=== PATIENT | female | born 1985 | race Caucasian/White ===

== ENCOUNTER 2022-10-15 07:59 | Inpatient (IN) | payer OTHER ==
[2022-10-15] MEDS ORDERED: CYTOTEC PO SCH ×2 (18:00→20:00)
[2022-10-15] MEDS ORDERED: TYLENOL EXTRA STRENGTH 500 MG PO PRN (18:00)
[2022-10-15] MEDS ORDERED: Zofran 4 MG/2 ML VIAL IV PRN (18:00)
[2022-10-15 19:53] LABS: Amphetamine,Urine NEGATIVE (NEGATIVE); Barbiturate,Urine NEGATIVE (NEGATIVE); Benzodiazepine,Urine NEGATIVE (NEGATIVE); Cocaine,Urine NEGATIVE (NEGATIVE); Methadone,Urine NEGATIVE (NEGATIVE); Opiate,Urine NEGATIVE (NEGATIVE); PCP,Urine NEGATIVE (NEGATIVE); THC,Urine NEGATIVE (NEGATIVE)
[2022-10-15 20:10] LABS: Absolute Neutrophil Ct (ANC) 7.85 x10^3/uL (1.4-6.9); BASOPHIL % 0.3 % (0.0-0.4); Basophil (Absolute #) 0.03 x10^3/uL (0-0.4); Eosinophil % 1.4 % (0.00-5.0); Eosinophil (Absolute #) 0.16 x10^3/uL (0-0.5); Hematocrit 39.1 % (35-47); Hemoglobin 12.6 g/dL (12.0-16.0); IMMATURE GRAN # 0.07 x10^3u/L (0.00-0.03); IMMATURE GRAN % 0.6 % (0.00-0.4); Lymphocyte (Absolute #) 2.85 x10^3/uL (1.0-4.6); Lymphocytes % 24.6 % (24.0-44.0); Mean Cell Volume 87.5 fL (78-100); Mean Corpuscular Hemoglobin 28.2 pg (26-32); Mean Corpuscular Hgb Concent. 32.2 g/dL (32-36); Mean Platelet Volume 10.1 fL (7.5-11.0); Monocyte (Absolute #) 0.63 x10^3/uL (0.0-1.3); Monocytes % 5.4 % (0.0-12.0); Neutrophil % 67.7 % (36.0-66.0); Platelet Count 327 x10^3/uL (150-450); Red Blood Count 4.47 x10^6/uL (4.1-5.4); Red Cell Distribution Width 14.6 % (11.5-14.0); White Blood Count 11.6 x10^3/uL (4.0-10.5)
[2022-10-15 21:09] LABS: ABO TYPING A
[2022-10-15 21:10] LABS: Antibody Screen NEGATIVE (NEGATIVE); RH TYPING NEGATIVE
[2022-10-15] MEDS: CYTOTEC PO SCH ×2 (21:14→23:18)
[2022-10-15] MEDS ORDERED: HUMALOG SQ PRN (22:03)
[2022-10-15] MEDS: Trandate 100 MG PO SCH (23:15)
[2022-10-15] MEDS: Lantus Insulin SQ SCH (23:16)
[2022-10-16] MEDS: Ambien 5 MG Tablet PO SCH (00:59)
[2022-10-16] MEDS: CYTOTEC PO SCH ×3 (01:17→05:15)
[2022-10-16] MEDS ORDERED: Zofran 4 MG/2 ML VIAL IV PRN (03:52)
[2022-10-16] MEDS ORDERED: STADOL 2 MG IV PRN (03:52)
[2022-10-16] MEDS ORDERED: TYLENOL EXTRA STRENGTH 500 MG PO PRN (03:52)
[2022-10-16] MEDS ORDERED: XYLOCAINE 1% HCL 20 ML MDV IJ PRN ×2 (04:15→08:00)
[2022-10-16] MEDS ORDERED: PITOCIN 30 UNITS/ LR 500 ML 30 UNITS/500 ML PLAST..BAG IV SCH ×4 (06:00→12:00)
[2022-10-16] MEDS ORDERED: Lactated Ringers 1,000 ML IV SCH (06:00)
[2022-10-16] MEDS ORDERED: Lactated Ringers 1,000 ML IV ONE (07:00)
[2022-10-16] MEDS: Lactated Ringers 1,000 ML IV SCH ×2 (07:04→13:38)
[2022-10-16] MEDS ORDERED: FENTANYL 2 MCG-BUPIV 0.125%-NS 250 ML Epidur 250 ML EPIDURAL SCH ×2 (08:00→12:30)
[2022-10-16] MEDS ORDERED: Ephedrine Sulfate 50 MG/ML IV PRN ×2 (08:00→12:28)
[2022-10-16] MEDS: Lantus Insulin SQ SCH ×2 (09:55→21:59)
[2022-10-16] MEDS ORDERED: Trandate 100 MG PO SCH (10:00)
[2022-10-16] MEDS: Trandate 100 MG PO SCH ×2 (10:13→22:00)
[2022-10-16] MEDS: NORVASC 5 MG PO SCH (10:13)
[2022-10-16] MEDS ORDERED: XYLOCAINE 2%/Epi 1:200000 20ML VIAL MPF ONE (14:47)
[2022-10-16] MEDS ORDERED: Sensorcaine 0.25% 10 ML ONE (14:49)
[2022-10-16] MEDS ORDERED: OFIRMEV 100 ML IV ONE (14:49)
[2022-10-16] MEDS ORDERED: SUBLIMAZE 100 MCG/2 ML ONE (14:49)
[2022-10-16] MEDS ORDERED: PHENYLEPHRINE HCL ONE (14:53)
[2022-10-16] MEDS ORDERED: Pitocin 10 UNITS/ML ONE (14:56)
[2022-10-16] MEDS ORDERED: SOD CITRATE-CITRIC ACID SOLN PO SCH (15:00)
[2022-10-16] MEDS ORDERED: CEFAZOLIN 2 GM-D5W BAG** 2 GM/50 ML ML IV SCH (15:00)
[2022-10-16] MEDS ORDERED: Reglan 10 MG/2 ML IV SCH (15:00)
[2022-10-16] MEDS ORDERED: Pepcid 20 MG VIAL IV SCH (15:00)
[2022-10-16] MEDS ORDERED: Astramorph-Pf 5 MG/10 ML ONE (15:02)
[2022-10-16 15:09] LABS: Appearance Clear (Clear); Bacteria None Seen /HPF (None Seen); Bilirubin Negative (Negative); Blood Negative (Negative); Epithelial Cells Rare /HPF (None Seen); Glucose, Urine Negative (Negative); Ketones 40 (Negative); Leukocyte Esterase Negative (Negative); Nitrite Negative (Negative); Protein,Urine Dip Trace (Negative); Urobilinogen 0.2 mg/dL (0.2)
[2022-10-16 15:10] LABS: ADD URINE CULTURE? ORDERED SEPARATELY (NO)
[2022-10-16 15:32] LABS: INR 0.9 (0.8-3.0); PROTIME 9.9 SECONDS (9.4-12.5); PTT 27.5 SECONDS (25.1-36.5)
[2022-10-16] MEDS ORDERED: Zofran 4 MG/2 ML VIAL ONE (15:44)
[2022-10-16] MEDS ORDERED: Ephedrine Sulfate 50 MG/ML ONE (16:56)
[2022-10-16] MEDS ORDERED: MOTRIN 400 MG PO PRN (19:59)
[2022-10-16] MEDS ORDERED: Mylicon 80MG PO PRN (19:59)
[2022-10-16] MEDS ORDERED: Dulcolax 10 MG SUPP PR PRN (19:59)
[2022-10-16] MEDS ORDERED: LANSINOH 40 GM TOP PRN (19:59)
[2022-10-16] MEDS ORDERED: Nubain 10 MG/ML IV PRN (20:14)
[2022-10-16] MEDS ORDERED: BENADRYL 50 MG/ML IV PRN (20:14)
[2022-10-16] MEDS ORDERED: PERCOCET TABLET 5/325MG PO PRN (20:14)
[2022-10-16] MEDS ORDERED: Sodium Chloride 0.9% 10 ML FLUSH Syringe IJ PRN (20:14)
[2022-10-16] MEDS ORDERED: Narcan 0.4 MG/ML IV PRN (20:14)
[2022-10-16] MEDS ORDERED: HOLD NARCOTIC ANALGESICS AND SEDATIVES X24 HR MC PRN (20:14)
[2022-10-16] MEDS ORDERED: MORPHINE SULFATE 2 MG INJ IV PRN (20:14)
[2022-10-16] MEDS ORDERED: CLARITIN 10 MG ONE (21:06)
[2022-10-16] MEDS ORDERED: CLARITIN 10 MG PO PRN (21:15)
[2022-10-16] MEDS ORDERED: [UNRECOGNIZED DRUG - REMARK] PO SCH (22:00)
[2022-10-16] MEDS ORDERED: THERAGRAN MULTIVITAMIN PO SCH (22:00)
[2022-10-17] MEDS: Ambien 5 MG Tablet PO SCH ×2 (00:24→22:20)
[2022-10-17] MEDS ORDERED: Lactated Ringers 1,000 ML IV SCH (05:00)
[2022-10-17] MEDS: Lactated Ringers 1,000 ML IV SCH (05:15)
[2022-10-17 05:17] LABS: Absolute Neutrophil Ct (ANC) 10.28 x10^3/uL (1.4-6.9); BASOPHIL % 0.3 % (0.0-0.4); Basophil (Absolute #) 0.04 x10^3/uL (0-0.4); Eosinophil % 0.3 % (0.00-5.0); Eosinophil (Absolute #) 0.04 x10^3/uL (0-0.5); Hematocrit 34.3 % (35-47); IMMATURE GRAN # 0.04 x10^3u/L (0.00-0.03); IMMATURE GRAN % 0.3 % (0.00-0.4); Lymphocyte (Absolute #) 1.93 x10^3/uL (1.0-4.6); Lymphocytes % 14.9 % (24.0-44.0); Mean Cell Volume 87.5 fL (78-100); Mean Corpuscular Hemoglobin 28.1 pg (26-32); Mean Corpuscular Hgb Concent. 32.1 g/dL (32-36); Mean Platelet Volume 10.5 fL (7.5-11.0); Monocytes % 4.6 % (0.0-12.0); Neutrophil % 79.6 % (36.0-66.0); Platelet Count 280 x10^3/uL (150-450); Red Blood Count 3.92 x10^6/uL (4.1-5.4); Red Cell Distribution Width 14.4 % (11.5-14.0); White Blood Count 12.9 x10^3/uL (4.0-10.5)
[2022-10-17] MEDS ORDERED: Rhogam Plus 300 MCG IM ONE (08:00)
--- NOTE | 2022-10-17 08:20 | PCM.NOTE ---
Date and Time: 10/17/22818 Subjective Assessment: pain is well controlled, mild lochia. falcon still present. has been up x 1, [place] so far Objective Exam General Appearance: no apparent distress, obese Neurologic Exam: alert, oriented x 3 Respiratory Exam: normal breath sounds, lungs clear, No respiratory distress Cardiovascular Exam: regular rate/rhythm, normal heart sounds Gastrointestinal/Abdomen Exam: soft, other (incision clean,dry, intact), No tenderness, No mass Extremity Exam: normal inspection, normal range of motion OBJECTIVE DATA Vital Signs: Vital Signs - 24 hr Temp Pulse Resp BP BP Pulse Ox 10/17/22 07:06 95 10/17/22 05:30 71 18 139/77 94 L 10/17/22 05:00 94 L 10/17/22 04:00 68 16 95 10/17/22 03:00 94 L 10/17/22 02:00 94 L 10/17/22 01:00 93 L 10/17/22 00:00 99 10/16/22 23:00 97 10/16/22 22:00 99 H 16 147/84 97 10/16/22 21:30 79 16 138/63 88 L 10/16/22 20:30 98.1 F 84 18 147/79 89 L 10/16/22 19:30 97.4 F 56 L 18 140/80 89 L 10/16/22 19:00 97.5 F 82 18 141/71 97 10/16/22 18:30 97.5 F 82 18 141/71 92 L 10/16/22 18:15 97.5 F 81 18 121/58 93 L 10/16/22 18:00 97.5 F 81 18 98/54 93 L 10/16/22 17:45 97.5 F 75 18 102/58 92 L 10/16/22 17:30 97.5 F 80 18 110/57 93 L 10/16/22 15:15 97.5 F 78 18 100/57 99 10/16/22 15:00 97.5 F 78 18 100/57 97 10/16/22 14:59 97.3 F 80 20 140/66 96 10/16/22 14:45 97.5 F 73 18 111/58 97 10/16/22 14:30 97.5 F 83 18 110/59 97 10/16/22 14:15 97.5 F 75 18 117/65 97 10/16/22 14:00 97.5 F 82 18 108/63 97 10/16/22 13:45 97.5 F 85 18 118/65 97 10/16/22 13:30 97.3 F 95 H 18 128/70 97 10/16/22 13:15 97.3 F 81 20 126/87 96 10/16/22 13:00 97.3 F 80 20 159/82 96 10/16/22 12:45 97.3 F 75 20 179/86 96 10/16/22 12:30 97.3 F 75 20 179/86 96 10/16/22 12:15 97.3 F 75 20 179/86 96 10/16/22 12:00 98.1 F 75 20 157/84 96 10/16/22 11:45 98.1 F 75 20 157/84 96 10/16/22 11:30 97.3 F 73 20 148/66 96 10/16/22 11:15 97.3 F 73 20 148/66 96 10/16/22 11:00 97.3 F 83 20 130/76 96 10/16/22 10:45 83 20 130/76 96 10/16/22 10:30 80 20 169/89 96 10/16/22 10:15 97.3 F 81 20 148/101 96 10/16/22 10:00 98.1 F 90 20 130/81 96 10/16/22 09:45 98.1 F 85 20 146/88 97 10/16/22 09:30 98.1 F 83 20 142/84 96 10/16/22 09:15 98.1 F 79 20 169/83 96 10/16/22 09:00 98.1 F 79 20 169/83 96 10/16/22 08:45 98.1 F 80 20 141/76 96 10/16/22 08:30 98.1 F 89 20 142/82 96 Pain Assessment - Last Documented Pain Intensity [Lower Anterior 5 ] Pain Intensity 0 Intake and Output: Intake & Output 10/14/22 10/15/22 10/16/22 10/17/22 11:59 11:59 11:59 11:59 Intake Total 1250 5400 Output Total 1 8764 Balance 1249 2566 Weight 111.584 kg 111.584 kg Lab Results: Lab Results-Last Hours 10/15/22 10/15/22 10/15/22 Range/Units 19:33 20:03 20:03 WBC 11.6 H (4.0-10.5) x10^3/uL RBC 4.47 (4.1-5.4) x10^6/uL Hgb 12.6 (12.0-16.0) g/dL Hct 39.1 (35-47) % MCV 87.5 (78-100) fL MCH 28.2 (26-32) pg MCHC 32.2 (32-36) g/dL RDW 14.6 H (11.5-14.0) % Plt Count 327 (150-450) x10^3/uL MPV 10.1 (7.5-11.0) fL Gran % 67.7 H (36.0-66.0) % Immature Gran % (Auto) 0.6 H (0.00-0.4) % Nucleat RBC Rel Count 0.0 (0.00-0.1) % Eos # (Auto) 0.16 (0-0.5) x10^3/uL Immature Gran # (Auto) 0.07 H (0.00-0.03) x10^3u/L Absolute Lymphs (auto) 2.85 (1.0-4.6) x10^3/uL Absolute Monos (auto) 0.63 (0.0-1.3) x10^3/uL Absolute Nucleated RBC 0.00 (0.00-0.01) x10^3u/L Lymphocytes % 24.6 (24.0-44.0) % Monocytes % 5.4 (0.0-12.0) % Eosinophils % 1.4 (0.00-5.0) % Basophils % 0.3 (0.0-0.4) % Absolute Granulocytes 7.85 H (1.4-6.9) x10^3/uL Basophils # 0.03 (0-0.4) x10^3/uL PT (9.4-12.5) SECONDS INR (0.8-3.0) APTT (25.1-36.5) SECONDS POC Glucometer (74 to 106) mg/dL Urine Color (Yellow) Urine Appearance (Clear) Urine pH (4.6-8.0) Ur Specific [place] (1.005-1.030) Urine Protein (Negative) Urine Glucose (UA) (Negative) mg/dL Urine Ketones (Negative) Urine Blood (Negative) Urine Nitrite (Negative) Urine Bilirubin (Negative) Urine Urobilinogen (0.2) mg/dL Ur Leukocyte Esterase (Negative) U Hyaline Cast (Auto) (0-2) /LPF Urine Microscopic RBC (0-5) /HPF Urine Microscopic WBC (0-5) /HPF Ur Epithelial Cells (None Seen) /HPF Urine Bacteria (None Seen) /HPF Urine Culture Reflexed (NO) Urine Opiates Level NEGATIVE (NEGATIVE) Ur Methadone NEGATIVE (NEGATIVE) Urine Barbiturates NEGATIVE (NEGATIVE) Ur Phencyclidine (PCP) NEGATIVE (NEGATIVE) Urine Amphetamine NEGATIVE (NEGATIVE) U Benzodiazepine Level NEGATIVE (NEGATIVE) Urine Cocaine NEGATIVE (NEGATIVE) Urine Marijuana (THC) NEGATIVE (NEGATIVE) ABO Group A Rh Factor NEGATIVE Antibody Screen NEGATIVE (NEGATIVE) 10/16/22 10/16/22 10/16/22 Range/Units 10:14 14:59 15:15 WBC (4.0-10.5) x10^3/uL RBC (4.1-5.4) x10^6/uL Hgb (12.0-16.0) g/dL Hct (35-47) % MCV (78-100) fL MCH (26-32) pg MCHC (32-36) g/dL RDW (11.5-14.0) % Plt Count (150-450) x10^3/uL MPV (7.5-11.0) fL Gran % (36.0-66.0) % Immature Gran % (Auto) (0.00-0.4) % Nucleat RBC Rel Count (0.00-0.1) % Eos # (Auto) (0-0.5) x10^3/uL Immature Gran # (Auto) (0.00-0.03) x10^3u/L Absolute Lymphs (auto) (1.0-4.6) x10^3/uL Absolute Monos (auto) (0.0-1.3) x10^3/uL Absolute Nucleated RBC (0.00-0.01) x10^3u/L Lymphocytes % (24.0-44.0) % Monocytes % (0.0-12.0) % Eosinophils % (0.00-5.0) % Basophils % (0.0-0.4) % Absolute Granulocytes (1.4-6.9) x10^3/uL Basophils # (0-0.4) x10^3/uL PT 9.9 (9.4-12.5) SECONDS INR 0.90 (0.8-3.0) APTT 27.5 (25.1-36.5) SECONDS POC Glucometer 134 H (74 to 106) mg/dL Urine Color Yellow (Yellow) Urine Appearance Clear (Clear) Urine pH 8.0 (4.6-8.0) Ur Specific [place] 1.020 (1.005-1.030) Urine Protein Trace A (Negative) Urine Glucose (UA) Negative (Negative) mg/dL Urine Ketones 40 A (Negative) Urine Blood Negative (Negative) Urine Nitrite Negative (Negative) Urine Bilirubin Negative (Negative) Urine Urobilinogen 0.2 (0.2) mg/dL Ur Leukocyte Esterase Negative (Negative) U Hyaline Cast (Auto) 3-5 A (0-2) /LPF Urine Microscopic RBC 3-5 (0-5) /HPF Urine Microscopic WBC 3-5 (0-5) /HPF Ur Epithelial Cells Rare (None Seen) /HPF Urine Bacteria None Seen (None Seen) /HPF Urine Culture Reflexed ORDERED SEPARATELY (NO) Urine Opiates Level (NEGATIVE) Ur Methadone (NEGATIVE) Urine Barbiturates (NEGATIVE) Ur Phencyclidine (PCP) (NEGATIVE) Urine Amphetamine (NEGATIVE) U Benzodiazepine Level (NEGATIVE) Urine Cocaine (NEGATIVE) Urine Marijuana (THC) (NEGATIVE) ABO Group Rh Factor Antibody Screen (NEGATIVE) 10/16/22 10/16/22 10/17/22 Range/Units 19:25 22:07 04:00 WBC 12.9 H (4.0-10.5) x10^3/uL RBC 3.92 L (4.1-5.4) x10^6/uL Hgb 11.0 L (12.0-16.0) g/dL Hct 34.3 L (35-47) % MCV 87.5 (78-100) fL MCH 28.1 (26-32) pg MCHC 32.1 (32-36) g/dL RDW 14.4 H (11.5-14.0) % Plt Count 280 (150-450) x10^3/uL MPV 10.5 (7.5-11.0) fL Gran % 79.6 H (36.0-66.0) % Immature Gran % (Auto) 0.3 (0.00-0.4) % Nucleat RBC Rel Count 0.0 (0.00-0.1) % Eos # (Auto) 0.04 (0-0.5) x10^3/uL Immature Gran # (Auto) 0.04 H (0.00-0.03) x10^3u/L Absolute Lymphs (auto) 1.93 (1.0-4.6) x10^3/uL Absolute Monos (auto) 0.60 (0.0-1.3) x10^3/uL Absolute Nucleated RBC 0.00 (0.00-0.01) x10^3u/L Lymphocytes % 14.9 L (24.0-44.0) % Monocytes % 4.6 (0.0-12.0) % Eosinophils % 0.3 (0.00-5.0) % Basophils % 0.3 (0.0-0.4) % Absolute Granulocytes 10.28 H (1.4-6.9) x10^3/uL Basophils # 0.04 (0-0.4) x10^3/uL PT (9.4-12.5) SECONDS INR (0.8-3.0) APTT (25.1-36.5) SECONDS POC Glucometer 144 H 121 H (74 to 106) mg/dL Urine Color (Yellow) Urine Appearance (Clear) Urine pH (4.6-8.0) Ur Specific [place] (1.005-1.030) Urine Protein (Negative) Urine Glucose (UA) (Negative) mg/dL Urine Ketones (Negative) Urine Blood (Negative) Urine Nitrite (Negative) Urine Bilirubin (Negative) Urine Urobilinogen (0.2) mg/dL Ur Leukocyte Esterase (Negative) U Hyaline Cast (Auto) (0-2) /LPF Urine Microscopic RBC (0-5) /HPF Urine Microscopic WBC (0-5) /HPF Ur Epithelial Cells (None Seen) /HPF Urine Bacteria (None Seen) /HPF Urine Culture Reflexed (NO) Urine Opiates Level (NEGATIVE) Ur Methadone (NEGATIVE) Urine Barbiturates (NEGATIVE) Ur Phencyclidine (PCP) (NEGATIVE) Urine Amphetamine (NEGATIVE) U Benzodiazepine Level (NEGATIVE) Urine Cocaine (NEGATIVE) Urine Marijuana (THC) (NEGATIVE) ABO Group Rh Factor Antibody Screen (NEGATIVE) 10/17/22 Range/Units 07:52 WBC (4.0-10.5) x10^3/uL RBC (4.1-5.4) x10^6/uL Hgb (12.0-16.0) g/dL Hct (35-47) % MCV (78-100) fL MCH (26-32) pg MCHC (32-36) g/dL RDW (11.5-14.0) % Plt Count (150-450) x10^3/uL MPV (7.5-11.0) fL Gran % (36.0-66.0) % Immature Gran % (Auto) (0.00-0.4) % Nucleat RBC Rel Count (0.00-0.1) % Eos # (Auto) (0-0.5) x10^3/uL Immature Gran # (Auto) (0.00-0.03) x10^3u/L Absolute Lymphs (auto) (1.0-4.6) x10^3/uL Absolute Monos (auto) (0.0-1.3) x10^3/uL Absolute Nucleated RBC (0.00-0.01) x10^3u/L Lymphocytes % (24.0-44.0) % Monocytes % (0.0-12.0) % Eosinophils % (0.00-5.0) % Basophils % (0.0-0.4) % Absolute Granulocytes (1.4-6.9) x10^3/uL Basophils # (0-0.4) x10^3/uL PT (9.4-12.5) SECONDS INR (0.8-3.0) APTT (25.1-36.5) SECONDS POC Glucometer 115 H (74 to 106) mg/dL Urine Color (Yellow) Urine Appearance (Clear) Urine pH (4.6-8.0) Ur Specific [place] (1.005-1.030) Urine Protein (Negative) Urine Glucose (UA) (Negative) mg/dL Urine Ketones (Negative) Urine Blood (Negative) Urine Nitrite (Negative) Urine Bilirubin (Negative) Urine Urobilinogen (0.2) mg/dL Ur Leukocyte Esterase (Negative) U Hyaline Cast (Auto) (0-2) /LPF Urine Microscopic RBC (0-5) /HPF Urine Microscopic WBC (0-5) /HPF Ur Epithelial Cells (None Seen) /HPF Urine Bacteria (None Seen) /HPF Urine Culture Reflexed (NO) Urine Opiates Level (NEGATIVE) Ur Methadone (NEGATIVE) Urine Barbiturates (NEGATIVE) Ur Phencyclidine (PCP) (NEGATIVE) Urine Amphetamine (NEGATIVE) U Benzodiazepine Level (NEGATIVE) Urine Cocaine (NEGATIVE) Urine Marijuana (THC) (NEGATIVE) ABO Group Rh Factor Antibody Screen (NEGATIVE) Assessment/Plan (1) delivery delivered Current Visit: Yes Status: Acute Assessment & Plan: routine postop orders Code(s): O82 - ENCOUNTER FOR DELIVERY WITHOUT INDICATION (2) Type 2 diabetes mellitus Current Visit: Yes Status: Acute (3) Essential hypertension Current Visit: Yes Status: Acute Code(s): I10 - ESSENTIAL (PRIMARY) HYPERTENSION
[2022-10-17] MEDS: Trandate 100 MG PO SCH ×2 (09:58→22:19)
[2022-10-17] MEDS: Docusate Sodium 100 MG PO SCH ×2 (09:58→22:20)
[2022-10-17] MEDS: FERREX 150 PO SCH (09:58)
[2022-10-17] MEDS: NORVASC 5 MG PO SCH (10:00)
[2022-10-17] MEDS ORDERED: Adacel Vial IM ONE (10:00)
[2022-10-17] MEDS: Lantus Insulin SQ SCH ×2 (10:15→22:21)
--- NOTE | 2022-10-17 11:51 | OP ---
SURGERY DATE/TIME: 10/16/2022 1521 PREOPERATIVE DIAGNOSES: 1) Non-reassuring heart tones. 2) Chronic hypertension. 3) Chronic diabetes mellitus type II. 4) Advanced maternal age. POSTOPERATIVE DIAGNOSES: 1) Non-reassuring heart tones. 2) Chronic hypertension. 3) Chronic diabetes mellitus type II. 4) Advanced maternal age. PROCEDURE: Emergency primary section. SURGEON: Yehuda Roldan M.D. ANESTHESIA: Epidural by Nakul Fox CRNA. QUANTITATIVE BLOOD LOSS: 530 cc. IV FLUIDS: 1200 cc of Crystalloid. URINE OUTPUT: 100 cc clear straw-colored urine. SPECIMEN: Placenta was sent for pathology. DESCRIPTION OF PROCEDURE: The patient was admitted for induction of labor with nonreassuring heart tones during labor process and intolerance of labor. She progressed only to 4 cm dilatation and was prepped for emergency section due to nonreassuring heart tones and persistent late decelerations. She had a previously placed laboring epidural dosed and she was taken to the OR, prepped and draped in the usual sterile fashion. Adequate level of anesthesia was assessed. A low transverse skin incision was made by knife and carried down through the subcutaneous fat to the level of the fascia. The fascia was nicked on both sides of the midline and extended horizontal using curved Radford scissors. The superior free edge of the fascia was grasped with Greer clamps and the underlying rectus muscles were dissected free. The same was repeated inferiorly. The peritoneal cavity was then opened and extended horizontal bluntly. Bladder flap was reflected over the lower uterine segment and horizontal uterine incision was made by knife and carried down to the uterus to the level of the amniotic membranes which were carefully artificially ruptured. A viable male was delivered from the vertex presentation with a strong cry immediately after delivery with good tone, good color and good respiratory effort. The cord was clamped and cut. He was handed off to the awaiting nursery team. Placenta was manually extracted and the uterus was exteriorized. The uterine cavity was sponge curetted clean with a lap sponge and some additional amniotic membranes were removed from the lower uterine segment. The uterus was then closed with #1 chromic in a running locked fashion with good closure and good hemostasis. Second layer was used to reinforce the suture line with good closure and good hemostasis. Posterior cul-de-sac was wiped free of blood and clot and the uterus was returned to the peritoneal cavity. The lateral gutters were wiped free of blood and clot and the uterine incision was carefully inspected and noted to be hemostatic with good closure. The fascia was closed with looped 0 PDS in a running fashion with good closure and good hemostasis achieved at that level as well. The subcutaneous fat was irrigated with warm, sterile saline. The subcutaneous space was closed with 2-0 Vicryl in interrupted fashion. Finally, the skin layer was closed with 4-0 undyed Vicryl in a running subcuticular fashion. Steri-Strips and occlusive dressing were placed over the incision and the patient was transferred to the recovery room in good condition.
[2022-10-17] MEDS ORDERED: Restoril 15 MG PO PRN (20:00)
[2022-10-17] MEDS ORDERED: Ambien 10 MG PO PRN (21:00)
[2022-10-17] MEDS ORDERED: DEMEROL 50 MG IV PRN (21:00)
[2022-10-18] MEDS: NORCO 5/325 MG PO PRN ×3 (04:08→14:52)
--- NOTE | 2022-10-18 09:48 | PCM.DS ---
Discharge Summary Date of Admission: 10/16/22 07:59 Admitting Physician: STAR OLEARY Consults: Consults on Case 10/16/22 14:53 Notify Physician OF ADMISSION 10/16/22 20:14 Notify Anesthesia Provider PRN 10/16/22 21:15 Notify Anesthesia Provider PRN 10/16/22 21:38 Navigation ONCE Primary Care Provider: STAR OLEARY Allergies Allergies No Known Drug Allergies Allergy (Verified 10/15/22 20:13) Hospital Summary - Hospital Course Hospital Course: patient had primary at 38wks with a history of chronic dm type 2 and chronic hypertension. she is doing great post-op, mild lochia, pain controlled. previously controlled on metformin alone - Vitals & Intake/Output Vital Signs: Vital Signs Temperature 97.7 F 10/18/22 02:00 Pulse Rate 96 H 10/18/22 02:00 Respiratory Rate 18 10/18/22 02:00 Blood Pressure 151/80 10/18/22 02:00 O2 Sat by Pulse Oximetry 93 L 10/18/22 02:00 Intake & Output: Intake & Output 10/15/22 10/16/22 10/17/22 10/18/22 11:59 11:59 11:59 11:59 Intake Total 1250 5400 350 Output Total 1 2834 1203 Balance 1249 2566 -853 Weight 111.584 kg 111.584 kg - Lab Result Diagrams: 10/17/22 04:00 Lab Results-Last 24 Hrs: Lab Results-Last 24 Hours 10/16/22 10/17/22 10/17/22 Range/Units 18:00 08:00 11:57 POC Glucometer 41 L* 150 H (50 to 500) mg/dL Screen SEE SEPARATE REPORT 10/17/22 10/18/22 Range/Units 16:15 08:41 POC Glucometer 144 H 114 H (50 to 500) mg/dL Screen Micro Results-Entire Visit: Microbiology 10/16/22 Unknown Urine Culture - Final Urine, Indwelling Catheter NO GROWTH Accuchecks Date 10/18/22 Date 10/17/22 Date 10/17/22 Time 08:30 Time 01:57 - Procedures and Test Procedures and Tests throughout Hospitalization: Therapy Orders & Screens 10/16/22 20:14 Oxygen Nasal Cannula 2 lpm Comment: Diagnosis: IUP, IOL, GDM Discharge Exam General Appearance: no apparent distress, obese Neurologic Exam: alert, oriented x 3 Respiratory Exam: normal breath sounds, lungs clear, No respiratory distress Cardiovascular Exam: regular rate/rhythm, normal heart sounds Gastrointestinal/Abdomen Exam: soft, other (incision clean, dry, intact and well approximated.) Extremity Exam: normal inspection, normal range of motion Skin Exam: normal color, warm, dry Final Diagnosis/Problem List - Final Discharge Diagnosis/Problem (1) delivery delivered Current Visit: Yes Status: Acute Code(s): O82 - ENCOUNTER FOR DELIVERY WITHOUT INDICATION (2) Type 2 diabetes mellitus Current Visit: Yes Status: Acute (3) Essential hypertension Current Visit: Yes Status: Acute Code(s): I10 - ESSENTIAL (PRIMARY) HYPERTENSION - Discharge Disposition: Home, Self-Care Condition: Stable Prescriptions: New Hydrocodone/Acetaminophen [Hydrocodone-Acetamin 5-325 mg] 1 tab PO Q6HPRN PRN #28 tablet MDD 4 PRN Reason: Pain Continue Amlodipine Besylate 5 mg [Norvasc 5 mg] 10 mg PO DAILY Metformin HCl 500 mg [Glucophage 500 MG] 500 mg PO BIDWM Loratadine 10 mg [Claritin 10 mg] 10 mg PO DAILY Omeprazole 20 mg PO DAILY Vit No.129/Iron/Folic [ One Daily Tablet] 81 mg PO HS Potassium Gluconate [Potassium] 99 mg PO DAILY Labetalol HCl 100 mg [Trandate 100 MG] 100 mg PO BID Discontinued Insulin Glargine [Lantus Insulin] 24 unit SQ BID Ferrous Sulfate 325 mg PO DAILY Insulin Lispro [Admelog] 100 unit SQ AC Aspirin EC 81 mg [Ecotrin 81 mg] 81 mg PO DAILY Follow up with: STAR OLEARY MD [Primary Care Provider] -
[2022-10-18] MEDS: NORVASC 5 MG PO SCH (09:57)
[2022-10-18] MEDS: Trandate 100 MG PO SCH (09:57)
[2022-10-18] MEDS: FERREX 150 PO SCH (09:58)
[2022-10-18] MEDS: Docusate Sodium 100 MG PO SCH (10:36)
[2022-10-18 11:51] VITALS: O2SAT 96
[2022-10-18 18:01] VITALS: BP 137/75; PULSE 93
== END 2022-10-18 17:00 | disposition home or self-care (01) | DRG 786 ==
LOC: OB 07:59 → OBSVTOIN 10-16 07:59
PROVIDERS: ADMIT Family Medicine; ATTEND Family Medicine
PROC: 10D00Z1 Extraction of Products of Conception, Low, Open Approach (ICD-10-PCS; principal; 2022-10-16)
DX: O36.8330 Maternal care for abnormalities of the fetal heart rate or rhythm, third trimester, not applicable or unspecified (principal); O24.12 Pre-existing type 2 diabetes mellitus, in childbirth; O10.92 Unspecified pre-existing hypertension complicating childbirth; Z37.0 Single live birth; Z3A.38 38 weeks gestation of pregnancy; Z20.828 Contact with and (suspected) exposure to other viral communicable diseases
CPT/HCPCS: 36415; 62322; 64488; 76937; 76942; 80307; 81001; 82947; 85025; 85461; 85610; 85730; 86850; 86900; 86901; 87086; 87340; 90471; 90715; 96372; 99140; G0378; J0690; J2274; J2300; J2370; J2405; J2590; J2790; J3010; A9270-GY

== ENCOUNTER 2024-02-14 21:04 | Emergency (ER) | payer BC, OTHER ==
[2024-02-14 21:26] VITALS: TEMP 97.8
[2024-02-14] MEDS: XYLOCAINE 1% HCL 20 ML MDV IJ ONE (21:27)
[2024-02-14] MEDS ORDERED: Augmentin 875-125 Tablet ONE (21:32)
[2024-02-14] MEDS: Augmentin 875-125 Tablet PO ONE (21:33)
--- NOTE | 2024-02-14 21:33 | ERPHSYRPT ---
- History of Present Illness Time Seen by Provider: 02/14/24 21:05 Source: patient Exam Limitations: no limitations Patient Subjective Stated Complaint: dog bite to R upper arm Triage Nursing Assessment: pt ambulatory to bed by self with steady gait with holding R upper arm with rag from home, pt presents with a dog bite to R upper arm, bleeding slightly, 1.3 cm laceration noted. tetanus utd and and dog's vaccinations utd, pt states it was her friends dogs Physician History: 38 years old female updated with tetanus presented in the ER after she got bit by a friend's dog. Patient reports she was messing with the dog when got attacked. Reports bleeding initially but stopped with applying pressure. Patient on the right elbow area. Multiple puncture wound with a small laceration. Intact range of motion of elbow. Allergies/Adverse Reactions: black pepper Allergy (Severe, Verified 02/14/24 21:10) Difficulty Breathing Home Medications: Amlodipine Besylate 5 mg [Norvasc 5 mg] 10 mg PO DAILY 10/15/22 [History] Labetalol HCl 100 mg [Trandate 100 MG] 100 mg PO BID 10/15/22 [History] Loratadine 10 mg [Claritin 10 mg] 10 mg PO DAILY 10/15/22 [History] Metformin HCl 500 mg [Glucophage 500 MG] 500 mg PO BIDWM 10/15/22 [History] Omeprazole 20 mg PO DAILY 10/15/22 [History] Potassium Gluconate [Potassium] 99 mg PO DAILY 10/15/22 [History] Vit No.129/Iron/Folic [ One Daily Tablet] 81 mg PO HS 10/15/22 [History] Hx Tetanus, Diphtheria Vaccination/Date Given: Yes Hx Influenza Vaccination/Date Given: No Hx Pneumococcal Vaccination/Date Given: No Travel Risk - International Travel Have you traveled outside of the country in past 3 weeks: No - Emerging Infectious Disease Are you exhibiting symptoms associated with any current EIDs: No - Review of Systems Constitutional: No Symptoms Ears, Nose, & Throat: No Symptoms Respiratory: No Symptoms Cardiac: No Symptoms Abdominal/Gastrointestinal: No Symptoms Genitourinary Symptoms: No Symptoms Musculoskeletal: Injury Skin: Skin Lesions Neurological: No Symptoms Endocrine: No Symptoms Immunological/Allergic: No Symptoms - Past Medical History Pertinent Past Medical History: Yes Neurological History: Migraines ENT History: No Pertinent History Cardiac History: Hypertension Respiratory History: No Pertinent History Endocrine Medical History: No Pertinent History, Diabetes Type II Musculoskeletal History: Fractures GI Medical History: GERD History: No Pertinent History Psycho-Social History: Anxiety, Depression Female Reproductive Disorders: No Pertinent History - Past Surgical History Past Surgical History: Yes Neuro Surgical History: No Pertinent History Cardiac: No Pertinent History Respiratory: No Pertinent History Gastrointestinal: Cholecystectomy Genitourinary: No Pertinent History Musculoskeletal: No Pertinent History Female Surgical History: Section - Female History Hx Last Menstrual Period: 01/28/24 Hx Now: No - Social History Smoking Status: Former smoker Exposure to second hand smoke: No Drug Use: none - Social Determinants of Health Will the patient participate in the screening: Yes Do you worry about a steady place to live?: No Do you have any problems with any of the following?: No known problems In the past 12 months,have you had to go without utilities?: No Transportation Issues: No Has anyone in your support network made you feel unsafe?: No Have you or anyone in your house had to go without enough: No - Nursing Vital Signs Nursing Vital Signs: Initial Vital Signs Temperature 97.8 F 02/14/24 21:13 Pulse Rate 118 H 02/14/24 21:13 Respiratory Rate 18 02/14/24 21:13 Blood Pressure 167/85 02/14/24 21:13 O2 Sat by Pulse Oximetry 98 02/14/24 21:13 Pain Scale Pain Intensity 2 - Physical Exam General Appearance: no apparent distress, alert Eye Exam: PERRL/EOMI Neck Exam: normal inspection, supple, full range of motion Respiratory Exam: normal breath sounds, lungs clear Cardiovascular Exam: normal heart sounds, tachycardia Extremity Exam: normal range of motion, other (2 cm laceration right elbow posterior aspect. No active spurting blood oozing. Intact range of motion. Multiple puncture wound in the lower arm area.) Neurologic Exam: alert, oriented x 3, cooperative Skin Exam: normal color SpO2 Interpretation: normal SpO2: 98 O2 Delivery: Room Air Procedures - Laceration/Wound Repair Right Elbow Time of Procedure: 21:32 Wound Location: Right Wound Length (cm): 2 Wound's Depth, Shape: into muscle Wound Explored: clean Irrigated: Yes Hibiclens Prep: Yes Anesthesia: 1% Lidocaine Volume Anesthetic (ccs): 3 Suture Size/Type: 4-0 Number of Sutures: 3 Ordered Tests: Medication Summary Discontinued Medications Generic Name Dose Route Start Last Admin Trade Name Wali PRN Reason Stop Dose Admin Lidocaine HCl 5 ml 02/14/24 21:22 Lidocaine Hcl 1% 20 Ml Mdv 20 Ml Ml IJ 02/14/24 21:23 STAT ONE - Progress Progress: improved Progress Note: 02/14/24 21:33 38 years old is evaluated for right elbow area her dog bite. Dog is immunized. Patient is up-to-date with tetanus. Intact range of motion of elbow. Laceration is repaired. Started on Augmentin. Outpatient follow-up recommended. Discussed signs symptoms of worsening needing return to ER which she seems understanding. Stable for discharge. Counseled pt/family regarding: diagnosis, need for follow-up Medical Desision Making - Diagnostic Testing Diagnostic test were ordered, analyzed, and reviewed by me: Yes - Risk of complications The pt has a mod risk of morbidity or mortality based on: Need for prescription drug management, Need for minor surgical intervention in patient with know risk factors - Departure Departure Disposition: Home Clinical Impression: Dog bite Condition: Stable Critical Care Time: No Referrals: STAR OLEARY MD [Primary Care Provider] - Follow up with PCP 1 day Instructions: Animal Bites (DC) Additional Instructions: Take Tylenol/ibuprofen as needed. Follow-up with primary care for reevaluation. Keep it clean and dry. Return to ER for increasing pain swelling redness discharge etc. Prescriptions: Ibuprofen 600 mg PO Q6HPRN PRN 10 Days #20 tablet PRN Reason: Pain Amox Tr/Potass Clav. 875 mg [Augmentin 875-125 Tablet] 875 mg PO BID #14 tablet
[2024-02-14 22:38] VITALS: BP 154/76; PULSE 100; RESP 20; O2SAT 97
--- NOTE | 2024-02-15 08:45 | XRAY ---
Indication: Pain. Dog bite. Comparison: None 3 view right elbow demonstrates soft tissue swelling/subcutaneous emphysema posterior to distal humerus presumed related to injury. No other bony, articular, or soft tissue abnormalities.
== END 2024-02-14 22:38 | disposition home or self-care (01) ==
LOC: ED 21:04
DX: S41.151A Open bite of right upper arm, initial encounter (principal); W54.0XXA Bitten by dog, initial encounter; I10 Essential (primary) hypertension; E11.9 Type 2 diabetes mellitus without complications; Z79.84 Long term (current) use of oral hypoglycemic drugs; Z79.899 Other long term (current) drug therapy
CPT/HCPCS: 12001; 73080; 96372; 99283; A9270-GY

== ENCOUNTER 2024-04-13 13:35 | Emergency (ER) | payer BC ==
[2024-04-13] MEDS ORDERED: XYLOCAINE 1% HCL 20 ML MDV IJ ONE (13:36)
--- NOTE | 2024-04-13 13:42 | ERPHSYRPT ---
- History of Present Illness Time Seen by Provider: 04/13/24 13:42 Source: patient Exam Limitations: no limitations Physician History: This is an obese 38-year-old white female patient of Dr. Oleary who arrives by private vehicle after experiencing approximately 1 week of dysuria. She has tried [id number] urinary pain relief medication which did not help relieve her discomfort. Patient states that she thinks she has a urinary tract infection. She does not have flank pain. She does not have abdominal pain. She has not had any nausea vomiting or diarrhea. She has not had any measured fever. She denies chest pain and she denies shortness of breath. Patient has a history of diabetes, hypertension, gastroesophageal reflux disease, anxiety, depression Timing/Duration: week(s) (1) Activites at Onset: none Quality: burning Onset Location: urethral (Urination) Pain Radiation: none Severity of Pain-Max: mild Severity of Pain-Current: mild Sexual intercourse history: non-contributory Modifying Factors: Improves With: urinating (Worsening of paindysuria) Associated Symptoms: dysuria Allergies/Adverse Reactions: black pepper Allergy (Severe, Verified 04/13/24 13:56) Difficulty Breathing Home Medications: Amlodipine Besylate [Norvasc] 10 mg PO DAILY 04/13/24 [History] Aspirin EC 81 mg [Ecotrin 81 mg] 81 mg PO DAILY 04/13/24 [History] Labetalol HCl 100 mg [Trandate 100 MG] 100 mg PO BID 04/13/24 [History] Metformin HCl 500 mg [Glucophage 500 MG] 500 mg PO BID 04/13/24 [History] Omeprazole 20 mg PO DAILY 04/13/24 [History] Potassium Citrate [Potassium] 99 mg PO DAILY 04/13/24 [History] Hx Tetanus, Diphtheria Vaccination/Date Given: Yes Hx Influenza Vaccination/Date Given: No Hx Pneumococcal Vaccination/Date Given: No Travel Risk - International Travel Have you traveled outside of the country in past 3 weeks: No - Emerging Infectious Disease Are you exhibiting symptoms associated with any current EIDs: No - Review of Systems Constitutional: No Symptoms Eyes: No Symptoms Ears, Nose, & Throat: No Symptoms Respiratory: No Symptoms Cardiac: No Symptoms Abdominal/Gastrointestinal: No Symptoms Genitourinary Symptoms: Dysuria Musculoskeletal: No Symptoms Skin: No Symptoms Neurological: No Symptoms Psychological: No Symptoms Endocrine: No Symptoms Hematologic/Lymphatic: No Symptoms Immunological/Allergic: No Symptoms All Other Systems: Reviewed and Negative - Past Medical History Pertinent Past Medical History: Yes Neurological History: Migraines ENT History: No Pertinent History Cardiac History: Hypertension Respiratory History: No Pertinent History Endocrine Medical History: No Pertinent History, Diabetes Type II Musculoskeletal History: Fractures GI Medical History: GERD History: No Pertinent History Psycho-Social History: Anxiety, Depression Female Reproductive Disorders: No Pertinent History - Past Surgical History Past Surgical History: Yes Neuro Surgical History: No Pertinent History Cardiac: No Pertinent History Respiratory: No Pertinent History Gastrointestinal: Cholecystectomy Genitourinary: No Pertinent History Musculoskeletal: No Pertinent History Female Surgical History: Section - Female History Hx Last Menstrual Period: 01/28/24 - Social History Smoking Status: Former smoker Exposure to second hand smoke: No Drug Use: none - Social Determinants of Health Will the patient participate in the screening: Yes Do you worry about a steady place to live?: No In the past 12 months,have you had to go without utilities?: No Transportation Issues: No Has anyone in your support network made you feel unsafe?: No Have you or anyone in your house had to go without enough: No - Nursing Vital Signs Nursing Vital Signs: Initial Vital Signs Temperature 99.2 F 04/13/24 14:00 Pulse Rate 105 H 04/13/24 14:00 Respiratory Rate 18 04/13/24 14:00 Blood Pressure 139/77 04/13/24 14:00 O2 Sat by Pulse Oximetry 97 04/13/24 14:00 Pain Scale Pain Intensity 6 - Physical Exam General Appearance: no apparent distress, alert, anxiety, obese Eye Exam: PERRL/EOMI, eyes nml inspection Ears, Nose, Throat Exam: normal ENT inspection, moist mucous membranes Neck Exam: normal inspection, non-tender, supple, full range of motion Respiratory Exam: airway intact, No chest tenderness, No respiratory distress Gastrointestinal/Abdomen Exam: No tenderness Pelvic Exam: not done Rectal Exam: not done Back Exam: normal inspection, normal range of motion, No CVA tenderness, No vertebral tenderness Extremity Exam: normal inspection, normal range of motion, pelvis stable Neurologic Exam: alert, oriented x 3, cooperative, 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, nml cerebellar function, nml station & gait, sensation nml Skin Exam: normal color, warm, dry Lymphatic Exam: No adenopathy SpO2 Interpretation: normal O2 Delivery: Room Air - Course Nursing assessment & vital signs reviewed: Yes Ordered Tests: Active Orders 24 hr Category Date Time Status CULTURE,URINE Stat Lab 04/13/24 14:07 Received HCG QUALITATIVE, URINE Stat Lab 04/13/24 14:07 Completed UA W/RFX UR CULTURE Stat Lab 04/13/24 14:07 Completed Medication Summary Discontinued Medications Generic Name Dose Route Start Last Admin Trade Name Wali PRN Reason Stop Dose Admin Ceftriaxone Sodium 1,000 mg 04/13/24 14:38 04/13/24 14:45 Ceftriaxone Sodium 1000 Mg Inj Vial IM 04/13/24 14:39 1,000 mg STAT ONE Administration Ceftriaxone Sodium Confirm 04/13/24 14:43 Ceftriaxone Sodium 1000 Mg Inj Vial Administered 04/13/24 14:44 Dose 1,000 mg .ROUTE .STK-MED ONE Levofloxacin 500 mg 04/13/24 14:38 04/13/24 14:45 Levofloxacin 500 Mg Tablet PO 04/13/24 14:39 500 mg STAT ONE Administration Levofloxacin Confirm 04/13/24 14:42 Levofloxacin 500 Mg Tablet Administered 04/13/24 14:43 Dose 500 mg .ROUTE .STK-MED ONE Lab/Rad Data: Laboratory Results 04/13/24 04/13/24 Range/Units 14:07 14:07 Urine Color Yellow (Yellow) Urine Appearance Cloudy A (Clear) Urine pH 5.5 (4.6-8.0) Ur Specific [place] >=1.030 A (1.005-1.030) Urine Protein 30 (Negative) Urine Glucose (UA) >=1000 A (Negative) mg/dL Urine Ketones 40 A (Negative) Urine Blood Negative (Negative) Urine Nitrite Positive A (Negative) Urine Bilirubin Negative (Negative) Urine Urobilinogen 0.2 (0.2) mg/dL Ur Leukocyte Esterase Small A (Negative) U Hyaline Cast (Auto) NONE SEEN (0-2) /LPF Urine Microscopic RBC 0-2 (0-5) /HPF Urine Microscopic WBC >100 A (0-5) /HPF Ur Epithelial Cells Rare (None Seen) /HPF Urine Bacteria Moderate A (None Seen) /HPF Urine Culture Reflexed YES (NO) Urine HCG, Qual NEGATIVE (NEGATIVE) - Progress Progress: unchanged Air Movement: good Progress Note: 04/13/24 14:54 My medical decision making and the assignment of low complexity to this patient's medical issue today is based on review of the patient's past medical history, review of patient's medication list, review patient drug allergy list, history present illness and physical findings on examination. The workup in this patient includes urinalysis. Differential diagnosis includes but not limited to dehydration, urinary tract infection Blood Culture(s) Obtained: No Antibiotics given: Yes Counseled pt/family regarding: lab results, diagnosis, need for follow-up Medical Desision Making - Diagnostic Testing Diagnostic test were ordered, analyzed, and reviewed by me: Yes - Risk of complications The pt has a mod risk of morbidity or mortality based on: Need for prescription drug management - Departure Departure Disposition: Home Clinical Impression: Urinary tract infection Condition: Stable Critical Care Time: No Referrals: STAR LOEARY MD [Primary Care Provider] - Follow up/PCP as directed Additional Instructions: Drink plenty of fluids. Take your antibiotics and Pyridium as prescribed. Use Tylenol and ibuprofen for pain and fever control. Call your primary care provider tomorrow, 04/14/2024, to make arrangements for follow-up appointment to be seen in the next 3 to 5 days. Prescriptions: Ciprofloxacin [Cipro 500 MG] 500 mg PO BID #14 tablet Phenazopyridine HCl 200 mg [Pyridium 200 mg] 200 mg PO TID #6 tablet
[2024-04-13 14:13] VITALS: RESP 18; TEMP 99.2
[2024-04-13 14:19] LABS: Appearance Cloudy (Clear); Bacteria Moderate /HPF (None Seen); Bilirubin Negative (Negative); Blood Negative (Negative); Epithelial Cells Rare /HPF (None Seen); Glucose, Urine >=1000 mg/dL (Negative); Hyaline Casts NONE SEEN /LPF (0-2); Ketones 40 (Negative); Leukocyte Esterase Small (Negative); Nitrite Positive (Negative); Ph 5.5 (4.6-8.0); Protein,Urine Dip 30 (Negative); RBC 0-2 /HPF (0-5); Specific Gravity >=1.030 (1.005-1.030); Urobilinogen 0.2 mg/dL (0.2); WBC >100 /HPF (0-5)
[2024-04-13 14:20] LABS: HCG URINE TEST NEGATIVE (NEGATIVE)
[2024-04-13 14:21] LABS: ADD URINE CULTURE? YES (NO)
[2024-04-13] MEDS ORDERED: Levofloxacin 500 MG Tablet ONE (14:42)
[2024-04-13] MEDS ORDERED: Rocephin 1000 MG INJ ONE (14:43)
[2024-04-13] MEDS: Levofloxacin 500 MG Tablet PO ONE (14:45)
[2024-04-13] MEDS: Rocephin 1000 MG INJ IM ONE (14:45)
[2024-04-13 14:57] VITALS: BP 138/68; PULSE 96; O2SAT 96
== END 2024-04-13 15:02 | disposition home or self-care (01) ==
LOC: ED 13:35
DX: N39.0 Urinary tract infection, site not specified (principal); R30.0 Dysuria; E11.9 Type 2 diabetes mellitus without complications; I10 Essential (primary) hypertension; Z79.84 Long term (current) use of oral hypoglycemic drugs; Z79.899 Other long term (current) drug therapy
CPT/HCPCS: 81001; 81025; 87077; 87086; 87186; 96372; 99283; J0696; A9270-GY